=== PATIENT | male | born 1970 | race Caucasian/White ===

== ENCOUNTER 2017-12-13 03:56 | Emergency (ER) | payer MEDICAID ==
[~2017-12-13] VITALS: Ht 167.6 cm; Wt 110.3 kg
[2017-12-13 04:03] VITALS: Ht 167.6 cm; Wt 110.3 kg
[2017-12-13 06:00] VITALS: BP 138/78
== END 2017-12-13 06:00 | disposition home or self-care (01) ==
LOC: ED 03:56
DX: S90.112A Contusion of left great toe without damage to nail, initial encounter (principal); I10 Essential (primary) hypertension; W20.8XXA Other cause of strike by thrown, projected or falling object, initial encounter; Y93.89 Activity, other specified; Y99.8 Other external cause status; Y92.89 Other specified places as the place of occurrence of the external cause
CPT/HCPCS: J1885; Q0092